=== PATIENT | female | born 1985 | race Caucasian/White ===

== ENCOUNTER 2018-07-04 02:48 | Inpatient (IN) ==
--- OUTSIDE RECORDS SUMMARY | 2018-07-04 02:52 | External Medical Summary | Continuity of Care Document ---
:1985 Author Name Pan Ma, Provider Address Unavailable Unavailable , Care Team Providers Name Role Phone Aliza Arellano [email or web address] JADA ROJAS Unavailable Unavailable Unavailable Unavailable Unavailable Problems Supervision of normal first in third trimester (V2 2.0) (Z34.03) Post-term , 40-42 weeks of gestation (645.10) (O48. 0) Allergies and Adverse Reactions Amoxicillin CAPS (Allergy) Medications TABS Refills: 0 Tums 500 CHEW Refills: 0 Procedures Non-stress test Date: 27-Jun-2018 Immunizations Fluzone Quadrivalent 0.5 ML Intramuscular Suspension P refilled Syringe On: 20-Dec-2017 16:17 Lot #: [id number], SANOFI PASTEUR Tdap (Adacel) On: 11-Apr-2018 16:06 Lot #: [id number], SANOFI PASTEUR Family History Grandfather Family history of Cancer, colon (153.9) (C18.9) Status: Acti ve Mother Family history of malignant neoplasm of breast (V16.3) (Z80. 3) Status: Active Family history of malignant neoplasm of female breast (V16.3 ) Status: Active (Z80.3) Unknown Family Member Family history of malignant neoplasm of Status: Active Comments: Family History breast (V16.3) (Z80.3) Family history of diabetes mellitus (V18.0) Status: Active Comments: Family History (Z83.3) Family history of hypertension (V17.49) Status: Active Comments: Family History (Z82.49) Plan of Treatment Planned Encounters Appointment; Aliza Arellano M.D. Start: 04-Jul-2018 15:20 R equest Planned Observations Planned Goals not documented Results Group B Strep/GALLARDO 06-Jun-2018 0:00 GRP B BETA STREP CULTURE - GALLARDO ORDERED P ROCEDURE : GRP B Beta Strep Culture -GALLARDO; Speciment : V aginal/Rectal Source of Specimen: Vaginal/ Rectal Group B St rep Culture : No Group B Strep isolated Vital Signs 27-Jun-2018 15:18 Systolic 118 mm[Hg] Diastolic 84 mm[Hg] Weight 222 lb Height 64 in BSA Calculated 2.04 m2 BMI Calculated 38.11 kg/m2 20-Jun-2018 13:38 Systolic 128 mm[Hg] Diastolic 82 mm[Hg] Weight 216.2 lb Height 64 in BSA Calculated 2.02 m2 BMI Calculated 37.11 kg/m2 13-Jun-2018 16:12 Systolic 110 mm[Hg] Diastolic 82 mm[Hg] Weight 215.125 lb Height 64 in BSA Calculated 2.02 m2 BMI Calculated 36.93 kg/m2 06-Jun-2018 16:22 Systolic 120 mm[Hg] Diastolic 74 mm[Hg] Weight 217.6 lb Height 64 in BSA Calculated 2.03 m2 BMI Calculated 37.35 kg/m2 Encounters Appointment; Dheeraj Rubio M.D. 27-Jun-2018 15:20 Encounter Diagnosis: Problem not documented Appointment; Israel Castellano M.D. 20-Jun-2018 13:30 Encounter Diagnosis: Problem not documented Appointment; Yemi Beyer M.D. 13-Jun-2018 16:20 Encounter Diagnosis: Problem not documented Appointment; Israel Castellano M.D. 06-Jun-2018 16:20 Encounter Diagnosis: Problem not documented Appointment; Israel Castellano M.D. 24-May-2018 16:30 Encounter Diagnosis: Problem not documented Appointment; Dheeraj Rubio M.D. 09-May-2018 16:30 Encounter Diagnosis: Problem not documented Appointment; Yemi Beyer M.D. 25-Apr-2018 15:50 Encounter Diagnosis: Problem not documented Appointment; Dheeraj Rubio M.D. 11-Apr-2018 16:10 Encounter Diagnosis: Problem not documented Appointment; Kaity Torrez DO 14-Mar-2018 16:00 Encounter Diagnosis: Problem not documented Appointment; [facility], Ultrasound 14-Mar-2018 15:30 Encounter Diagnosis: Problem not documented Appointment; Israel Castellano M.D. 14-Feb-2018 16:20 Encounter Diagnosis: Problem not documented Appointment; [facility], Ultrasound 14-Feb-2018 15:30 Encounter Diagnosis: Problem not documented Appointment; Tessie López M.D. 17-Jan-2018 16:30 Encounter Diagnosis: Problem not documented Appointment; Sandra Larson M.D. 20-Dec-2017 15:50 Encounter Diagnosis: Problem not documented Appointment; OB SC1, Procedure Rm 29-Nov-2017 12:00 Encounter Diagnosis: Problem not documented Appointment; Aliza Arellano M.D. 29-Nov-2017 12:00 Encounter Diagnosis: Problem not documented Appointment; OB SC1, Nursing [employer] [facility] 19-Nov-2017 9:45 Encounter Diagnosis: Problem not documented Appointment; lAiza Arellano M.D. 04-Jan-2017 9:00 Encounter Diagnosis: Problem not documented Appointment; Aliza Arellano M.D. 04-Jul-2018 15:20 Encounter Diagnosis: Problem not documented
[2018-07-04] MEDS ORDERED: OXYTOCIN 30 UNITS/500 ML BAG IV PRN ×2 (03:40→20:32)
[2018-07-04] MEDS ORDERED: LACTATED RINGER'S 1,000 ML IV PRN ×3 (03:40→22:05)
[2018-07-04 04:01] LABS: Hematocrit (blood only) 36.1 % (37-47); Hemoglobin 12.7 g/dL (12.0-16.0); Mean Corpuscular Volume 83.6 fL (80-100); Mean Platelet Volume 11.2 fL (7.4-10.4); Platelet Count 219 K/uL (130-400); RDW Coefficient of Variation 14.3 % (11.5-14.5); RDW Standard Deviation 43.7 fL (36.4-46.3); Red Blood Count 4.32 M/uL (4.2-5.4); White Blood Count 20.74 K/uL (4.8-10.8)
--- NOTE | 2018-07-04 04:16 | History & Physical Report ---
Date of Service July 04, 2018 Assessment & Plan (1) Supervision of normal intrauterine in primigravida: - pt had been LTC in office last week - early active labor - tracing Cat I - will admit and ambulate - anticipate History of Present Illness Chief Complaint: labor check Primary Care Provider: Hnana Pinto DO The patient is a 33-year-old 1 para 0 with an EDC of 6.8 by dates and first trimester ultrasound, at 40 weeks gestational age, who presents to labor and delivery for labor check. Patient states the contractions began 6 to 7 hours ago and increased in intensity. She denies rupture of membranes or vaginal bleeding. The patient has had a benign course. Her blood type is A+, antibody negative, rubella immune, hepatitis B negative, she had a negative cell free DNA screening, she had a normal 1 hour Glucola x2, and a negative third trimester beta strep culture. Allergies Allergy/AdvReac Type Severity Reaction Status Date / Time amoxicillin Allergy Rash Verified 07/04/18 03:11 Home Medications Home Medications Medication Instructions Recorded Confirmed Type vit-iron fum-folic ac 1 tab PO DAILY 07/04/18 07/04/18 History [ Vitamin] Patient History Social History Preferred Language: Setswana Communication Ability: Effective Manager Unix Required: No Beliefs That Will Affect Care: None marital status: Current Living Situation: Spouse Other Information That Helps Us Care for You: No Feels Safe at Home: Yes Safety Concerns: Feels Safe At This Time Smoking Status: Never smoker Hx Alcohol Use: No Hx Substance Use: No Physical Exam Constitutional: WD/WN, vitals as above Respiratory: Auscultation: lungs clear to auscultation bilaterally Cardiovascular: RRR, no murmur, no edema Extremities: no calf tenderness Gastrointestinal (Abdomen): gravid, vtx, (+) FHT's, EFW 7 1/2 lbs Genitourinary: Cervix #/80/-2 Results & Data Vital Signs (Past 12 Hours) Vital Signs Temp Pulse Resp BP 07/04/18 03:05 98.1 F 90 20 132/73
[2018-07-04 05:06] LABS: Mean Corpuscular Hgb Conc 35.2 g/dL (32-36)
--- NOTE | 2018-07-04 20:33 | Obstetrical Progress Note ---
Date of Service Cx still 5cm, -1 Recommend Pitocin 7-8 lbs Wishes epidural first July 04, 2018 Results & Data Vital Signs (Past 12 Hours) Vital Signs Temp Pulse Resp BP 07/04/18 19:30 98.1 F 96 H 18 126/68 07/04/18 19:02 96 H 126/68 07/04/18 16:46 87 142/80 H 07/04/18 16:42 98.4 F 20 07/04/18 14:27 99.1 F 20 07/04/18 11:24 98.4 F 85 20 133/81
[2018-07-04] MEDS ORDERED: ePHEDrine sulfate 50 MG/ML AMP ONE (20:51)
[2018-07-04] MEDS ORDERED: BUPIVACAINE 0.25% 30 ML VIAL ONE (20:51)
[2018-07-04] MEDS ORDERED: fentaNYL citrate 100 MCG/2 ML VIAL ONE (20:51)
[2018-07-04] MEDS ORDERED: fentaNYL 2MCG/ML ROPIV 1.25MG/ML 100 ML BAG EPI ONE (20:51)
--- NOTE | 2018-07-04 21:20 | Anesthesiology Consultation ---
Date of Service July 04, 2018 Assessment & Plan (1) Encounter for pre-operative examination: Chart Review Chart Review: Patient NOT seen in Pre Admission Testing and Acceptable Risk for Labor Epidural Consults Requested none ASA ASA2 Proposed Anesthesia Anesthesia Type: Labor Epidural Risk / Benefits Reviewed With: PT / POA / Parent / Guardian, Accepts Plan and Informed Consent Obtained History Height/Weight Height: 5 ft 4 in Weight: 100.698 kg Allergies Allergy/AdvReac Type Severity Reaction Status Date / Time amoxicillin Allergy Rash Verified 07/04/18 03:11 Medications Home Medications Medication Instructions Recorded Confirmed Last Taken vit-iron fum-folic ac 1 tab PO DAILY 07/04/18 07/04/18 07/03/18 08:00 [ Vitamin] Active Medications Generic Name Dose Route Start Last Admin Trade Name Freq PRN Reason Stop Dose Admin Lactated Ringer's 1,000 mls @ 999 mls/hr 07/04/18 03:40 07/04/18 21:20 Lr IV 08/03/18 03:39 125 mls/hr .Q1H1M PRN Infusion Pre-Anesthesia NPO Date Last Intake of Fluids: 07/04/18 Time Last Intake of Fluids: 22:01 Date Last Intake of Solids: 07/03/18 Time Last Intake of Solids: 16:00 Exercise / Class Metabolic Activity II 4-5 Yardwork/Stairs/Walk up hill Past Anesthesia History No Family Hx of Anesthesia Complications History of PONV No Hx of PONV (No prior anesthetic history) and No Hx of Motion Sickness Social History Smoking Status: Never smoker Hx Alcohol Use: No Hx Substance Use: No substance use type: does not use Review of Systems Patient denies active symptoms of GERD. Patient denies history of abnormal bleeding or bleeding disorder. Patient denie s active use of anticoagulants other than low dose aspirin. Patient denies numbness, tingling or weakness in lower extremities. Physical Exam Vital Signs Last Vital Signs Temp 36.7 C 07/04/18 19:30 Pulse 96 H 07/04/18 19:30 Resp 18 07/04/18 19:30 BP 126/68 07/04/18 19:30 Constitutional + obese (Gravid uterus) ENMT Mouth: no TMJ abnormality and oral opening not small Thyromental Distance: > or= 3.5 Finger Breadths Mallampati Class: II Neck normal visual inspection; neck extension not limited Respiratory normal respiratory effort, lungs clear to auscultation normal respiratory effort Auscultation: lungs clear to auscultation bilaterally Cardiovascular Rate/Rhythm: regular rate and regular rhythm Heart Sounds: no murmur Neurologic moves all extremities Motor/Sensory: no sensory deficit Psychiatric Orientation: alert and oriented x 3 Testing Laboratory Results 07/04/18 03:48
[2018-07-04] MEDS ORDERED: NALOXONE HCL 0.4 MG/1 ML VIAL/CARP IV PRN (22:05)
[2018-07-04] MEDS ORDERED: fentaNYL 2MCG/ML ROPIV 1.25MG/ML 100 ML BAG EPI PRN (22:05)
[2018-07-04] MEDS ORDERED: NALBUPHINE HCL INJ 10 MG/ML AMP IV PRN (22:05)
[2018-07-04] MEDS ORDERED: DiphenhydrAMINE HCL 50 MG/ML VIAL IV PRN (22:05)
[2018-07-04] MEDS ORDERED: ONDANSETRON INJ 2 MG/ML 2 ML VIAL IV PRN (22:05)
[2018-07-04] MEDS ORDERED: ePHEDrine sulfate 50 MG/ML AMP IV PRN (22:05)
[2018-07-04] MEDS ORDERED: NALOXONE HCL 1 MG in SODIUM CHLORIDE 0.9% 1000ML 1,000 ML IV PRN (22:05)
[2018-07-04] MEDS: LACTATED RINGER'S 1,000 ML IV SCH (23:37)
[2018-07-05] MEDS: LACTATED RINGER'S 1,000 ML IV SCH (06:10)
--- NOTE | 2018-07-05 09:21 | Procedure Note ---
Vaginal Delivery Summary Date of Service July 05, 2018 I arrived at L&D to begin my shift while this patient was pushing and my partner was scrubbed into another delivery. I therefore quickly introduced myself to Tonya and was given a verbal overview of her medical information by YOLANDA Siddiqi while I gowned and gloved for delivery. FHT were appropriate for second stage and pushing was effective (patient had been trying to hold off, with some difficulty). She was given the OK to push and in the next contration brought the head to . She then was able to deliver the head in RHODA position and two tight nuchal loops were reduced, while very thick meconium extruded from the vaginal opening around the infant. The next push delivered the shoulders and body without undue difficulty. The was placed on the maternal abdomen, suction bulb provided to RN, and cord doubly clamped and cut. The was vigorous and moving all extremities. A second degree laceration was repaired using vicryl suture with a crown stitch to rebuild the perineal body. The placenta then delivered S/I/3VC and will be sent for exam. The fundus was firm and lochia WNL at completion of delivery.
[2018-07-05] MEDS ORDERED: OXYCODONE/ACETAMINOPHEN 5mg/325mg TAB PO PRN (09:29)
[2018-07-05] MEDS ORDERED: SUPERCREAM 0.870% 15 GM JAR EXT PRN (09:29)
[2018-07-05] MEDS ORDERED: DIPHTHERIA/TETANUS/PERTUSSIS 0.5 ML SYR/VIAL IM ONE (09:29)
[2018-07-05] MEDS ORDERED: BENZOCAINE 20% AER SPR 82.5 GM CAN EXT PRN (09:29)
[2018-07-05] MEDS ORDERED: ACETAMINOPHEN 325 MG TAB PO PRN (09:29)
[2018-07-05] MEDS ORDERED: HYDROCORTISONE ACETATE 25 MG SUPP PR PRN (09:29)
--- NOTE | 2018-07-05 09:38 | Anesthesia Procedure Note ---
Date of Service July 05, 2018 Anesthesia Post Epidural Note Vital Signs Vital Signs: Temp Pulse Resp BP Pulse Ox 37.2 C 82 18 110/56 L 100 07/05/18 05:10 07/05/18 09:24 07/05/18 05:10 07/05/18 09:24 07/05/18 08:37 Pain Intensity Bilateral Lower Abdomen: Pain Intensity: 5 Notes Mental Status: alert / awake / arousable Patient Amnestic to Procedure: No Nausea / Vomiting: adequately controlled Pain: adequately controlled Airway Patency, RR, SpO2: stable & adequate BP & HR: stable & adequate Hydration State: stable & adequate Anesthetic Complications: no major complications apparent Epidural: Removed without complications and With tip intact Notes: Doing well, no complaints. VSS
[2018-07-05] MEDS: IBUPROFEN 600 MG TAB PO PRN ×2 (12:18→20:14)
[2018-07-05] MEDS: DOCUSATE SODIUM 100 MG CAP PO SCH (20:14)
[2018-07-06 07:12] LABS: Hematocrit (blood only) 32.9 % (37-47); Hemoglobin 10.9 g/dL (12.0-16.0)
--- NOTE | 2018-07-06 07:20 | Obstetrical Progress Note ---
Date of Service July 06, 2018 Assessment & Plan (1) Status post vaginal delivery: Patient is a 33 year old PPD 1 s/p -Vital signs WNL bp 105/71 T36.6, -Hemoglobin is 10.4 down from 12.7 on admission. no si/sx of anemia. -Pt is doing clinically well -Continue to encourage ambulation as tolerated, monitor and control pain with motrin prn, Continue diet as tolerated. -Continue to support and encourage breast feeding -pt reports concerns with breast feeding, consider meeting with technology applications consultant. -Routine care Supervising Physician Co-Signing Physician Notes I have reviewed the resident's note and examined the patient myself, and agree with the note above. Subjective Patient sitting up in bed with dad holding baby in the chair across the room. No acute events overnight. Patient is tolerating her diet, ambulating, passing gas and voiding, still no bm. Reports moderate lochia. Denies H/A, chest pain, palpitations and uti syx. Answered all questions, no concerns at present, pain is well controlled Physical Exam Physical Exam: Constitutional: WD/WN, vitals as above no acute distress Eyes: normal visual dean by confrontation Neck: normal visual inspection Respiratory: normal respiratory effort, lungs clear to auscultation Cardiovascular: RRR, no murmur, no edema Heart Sounds: normal S1 and normal S2 Extremities: no calf tenderness Gastrointestinal (Abdomen): Uterus firm and below the umbilicus Results & Data Vital Signs (Past 12 Hours) Vital Signs Temp Pulse Resp BP 07/06/18 04:20 36.6 C 76 18 105/71 07/05/18 23:30 36.9 C 83 18 106/72 07/05/18 20:16 37.1 C 93 H 18 116/79 Laboratory Results 07/06/18 Range/Units 07:01 Hgb 10.9 L (12.0-16.0) g/dL Hct 32.9 L (37-47) % Medications Administered Current Inpatient Medications Acetaminophen (Tylenol) 650 mg PO Q6H PRN PRN Reason: Pain/GUERIN/Fever Stop: 08/04/18 09:28 Benzocaine (Dermoplast Pain Relieving [place]) 1 appln EXT PRN PRN PRN Reason: Perineal Discomfort Stop: 08/04/18 09:28 Cocaine HCl (Supercream 0.870%) 1 gm EXT BID PRN PRN Reason: Hemorrhoidal Inflammation Stop: 07/19/18 09:28 Docusate Sodium (Colace) 100 mg PO BID [facility] Stop: 08/04/18 20:59 Last Admin: 07/05/18 20:14 Dose: 100 mg Documented by: Hydrocortisone (Anusol Hc) 25 mg WA BID PRN PRN Reason: Hemorrhoidal Inflammation Stop: 08/04/18 09:28 Lactated Ringer's (Lr) 1,000 mls @ 999 mls/hr IV .Q1H1M PRN PRN Reason: Pre-Anesthesia Stop: 08/03/18 03:39 Last Infusion: 07/04/18 23:36 Dose: Infused Documented by: Oxytocin (Pitocin) 30 units in 500 mls @ 333.333 mls/hr IV .Q1H30M PRN; Protocol PRN Reason: Bleeding Control Stop: 08/03/18 03:39 Ibuprofen (Motrin) 600 mg PO Q4H PRN PRN Reason: Pain/GUERIN/Cramping/Fever Stop: 08/04/18 09:28 Last Admin: 07/05/18 20:14 Dose: 600 mg Documented by: Oxycodone/Acetaminophen (Percocet 5mg/325mg) 1 tab PO Q4H PRN PRN Reason: Pain not relieved by... Stop: 07/19/18 09:28 Prenat Multivit/[place]/Iron/Folic Ac ( Vitamin) 1 tab PO QAM [facility] Stop: 08/05/18 08:59 Resident Activity Tracking Resident Involvement: Resident Care Provided Care Provided: Adult Hospital Medicine
--- NOTE | 2018-07-06 08:14 | Obstetrical Progress Note ---
Date of Service July 06, 2018 Subjective Patient points out a sore <1inch lump in L calf muscle which she did not think to mention to resident or MD on rounds this morning. RN tells me about this and I promptly go to see the patient. She has some varicosities, but in an area of normal-appearing skin, she points out a firm tender lump. This is within the medial head of the gastrocnemius, and the patient notes increased pain with flexion of the left foot. I explained my concern for possible DVT, and that a lso in the differential would be a superficial phlebitis, muscle cramp, etc. She is asked not to massage or excessively flex this area until a stat US of LE can be completed. Patient agreeable. At this time she does not have CP, SOB or desaturation noted. There is no increased edema in the left foot. There is no erythema or warmth over the affected area. Results & Data Vital Signs (Past 12 Hours) Vital Signs Temp Pulse Resp BP 07/06/18 04:20 36.6 C 76 18 105/71 07/05/18 23:30 36.9 C 83 18 106/72 07/05/18 20:16 37.1 C 93 H 18 116/79
[2018-07-06] MEDS: PRENATAL VITAMIN 1 TAB PO SCH (08:47)
[2018-07-06] MEDS: DOCUSATE SODIUM 100 MG CAP PO SCH ×2 (08:47→21:04)
--- NOTE | 2018-07-06 09:38 | Ultrasound Report ---
US venous doppler LE LT CLINICAL HISTORY: Suspected DVT PAIN. EDEMA. COMPARISON STUDY: No previous studies for comparison. FINDINGS: Real-time and color flow Doppler imaging were performed. Flow was seen within the femoral, popliteal and calf veins with no intraluminal thrombus demonstrated. Superficial varicosities of the mid calf demonstrate a 4 cm linear superficial thrombus. This is not in close proximity to a deep chance ous structure. IMPRESSION: 1. No evidence for deep venous thrombosis. 2. Superficial thrombophlebitis measuring 4 cm in greatest linear dimension involving a superficial v aricosity The above report was generated using voice recognition software. It may contain grammatical, syntax or spelling errors. Electronically signed by: David Saldaña M.D. 07/06/2018 9:37 AM
--- NOTE | 2018-07-06 11:06 | Consultation ---
Date of Consultation July 06, 2018 Assessment & Plan (1) Status post vaginal delivery: - Per primary team (2) Superficial thrombophlebitis during puerperium, : - The patient is high risk considering being 2d , as well as family history of unprovoked DVTs. She may have a family hx of blood dyscrasia or Factor V Leiden which is unknown at this time. Consider outpatient workup. - Would start lovenox 40 mg subq daily for 6 weeks - US reviewed as above - measures 4 cm in the left calf, no deep venous structure involvement. - Recommend serial ultrasounds to monitor the status of this clot, the next being within 3days, and then another 2-3 times to ensure the clot resolves. Would also recommend Right leg U/S for caution - Warm compresses and nsaids ok - Lovenox safe with as the patient plans to do this Thank you for involving medicine in the care of Mrs. Griffith, please do not hesitate to call with questions or concerns. Our team will follow along. Supervising Physician Co-Signing Physician Notes Attending Consult Note & Attestation - Pt seen/examined, chart reviewed, care plan d/w HANG Mon. I agree w/ the hollins components of her consultation documentation. 33yo female - 2 days post- from the of a term baby boy - who was diagnosed earlier today with superficial thrombophlebitis of the left leg. Patient noted a firm lump of the distal left leg (medial aspect of calf) this AM, OB ordered doppler, and this confirmed the presence of superficial thrombophlebitis of a calf muscle superficial vein. NO DVT was seen in the left leg. During my visit she complained of minimal soreness to this affected region. The patient plans to breastfeed her son. Denies ANY chest pain, dyspnea, cough, or other chest symptoms. No family h/o PE but there is a family h/o DVT and superficial thrombophlebitis. Patient is agreeable to lovenox treatment. PMH, PSH, allergies, meds, sochx, famhx, ros - reviewed VSS, afebrile gen - obese, NAD heart - RRR, s1, s2, no murmur lungs - CTA b/l ext - left calf mildly larger than right calf; palpable thrombus in the left leg on medial aspect of calf, about 2-3cm in size; no significant warmth, redness, or swelling; scattered varicose veins both legs A/P: 2 days post- from of term male. LLE superficial thrombophlebitis. After much discussion the patient is willing to treat/prophylax with lovenox 40mg SC once daily. Given her strong family history of DVT/phlebitis we advised this treatment option (rather than observation with serial doppler studies). Since we will be treating with lovenox would only obtain another doppler study if the LLE worsens or there is obvious propagation of the current clot. Otherwise serial dopplers would not alter our treatment course which is 6 weeks of the lovenox. On 07/07 we will call her pharmacy to check the denise of lovenox. to perform injections -- staff to teach her spouse. Of note - lovenox IS safe to use in mothers. I will follow the patient up again on 07/07. Toño Lara MD History of Present Illness Requesting Physician: Dr. Akbar Reason for Consultation: Superficial Thrombophlebitis Left calf Attending Physician: Yemi Beyer Jr, MD, FACOG History of Present Illness This is a 33 yo F without significant PMHx who is admitted to the L&D floor, and now 2 days . The patient reports soreness developed over the L calf after delivery. Upon ultrasound of the LLE, a 4 cm superficial clot was identified. The area is palpable to the patient without redness overlying the area. Family Hx: Pt notes significant family history with mother having an unprovoked DVT in the past where she was placed on coumadin. Her mother also had breast cancer however had issues with clots and varicose veins prior to that diagnosis. Pt's father also had hx of varicose veins with superficial thrombophlebitis and DVT with hx of being on coumadin in the past. Neither parent on lifelong coumadin She denies any known blood dyscrasias. Allergies Allergy/AdvReac Type Severity Reaction Status Date / Time amoxicillin Allergy Rash Verified 07/04/18 03:11 Home Medications Home Medications Medication Instructions Recorded Confirmed Type vit-iron fum-folic ac 1 tab PO DAILY 07/04/18 07/04/18 History [ Vitamin] Patient History Medical History Superficial thrombophlebitis during puerperium, Surgical History Status post vaginal delivery Social History Preferred Language: Maltese Communication Ability: Effective Tile Erector Required: No Beliefs That Will Affect Care: None marital status: Current Living Situation: Spouse Other Information That Helps Us Care for You: No Feels Safe at Home: Yes Safety Concerns: Feels Safe At This Time Smoking Status: Never smoker Hx Alcohol Use: No Hx Substance Use: No Review of Systems Review of Systems: Constitutional: No fever, sweats or chills Eyes: No diplopia, no worsening or blurred vision ENT: normal hearing, no trouble swallowing Respiratory: No cough, sputum, dyspnea at rest or on exertion Cardiovascular: No chest pain, tightness or palpitations Abdomen: No pain, nausea, vomiting, diarrhea or constipation Musculoskeletal: No joint pain, calf pain, swelling Neurologic: No weakness, numbness/tingling, or balance problems Psychiatric: No anxiety or depression Skin: No rash or itch Physical Exam Physical Exam: General: awake, alert, no apparent distress Head: Normocephalic, atraumatic ENT: PERRL, EOMI, no pharyngeal exudate, mucous membranes moist Chest: Clear to auscultation, on room air, no adventitious breath sounds Cardiac: Regular rate and rhythm, no murmur, no JVD, normal peripheral pulses, good capillary refill Abdominal: NABS x 4 quadrants, soft, nontender to palpation, no rebound, guarding or tenderness Extremities: No peripheral edema or erythema, + Left calf tenderness and palpable cord overlying the posterior medial aspect. Right calf nontender to palpation. Psych: Normal mood and affect Neuro: AAO x 3, strength intact bilaterally and related 5/5, no motor deficits, speech is clear, no peripheral sensory deficits Results & Data Vital Signs (Past 12 Hours) Vital Signs Temp Pulse Resp BP 07/06/18 08:00 36.5 C 87 20 122/83 07/06/18 04:20 36.6 C 76 18 105/71 07/05/18 23:30 36.9 C 83 18 106/72 Diagnostic Findings US venous doppler LE LT CLINICAL HISTORY: Suspected DVT PAIN. EDEMA. COMPARISON STUDY: No previous studies for comparison. FINDINGS: Real-time and color flow Doppler imaging were performed. Flow was seen within the femoral, popliteal and calf veins with no intraluminal thrombus demonstrated. Superficial varicosities of the mid calf demonstrate a 4 cm linear superficial thrombus. This is not in close proximity to a deep venous structure. IMPRESSION: 1. No evidence for deep venous thrombosis. 2. Superficial thrombophlebitis measuring 4 cm in greatest linear dimension involving a superficial varicosity
[2018-07-06] MEDS ORDERED: LOVENOX TEACHING KIT PRN (11:31)
[2018-07-06 14:28] LABS: Partial Thromboplastin Time 26.9 Seconds (21.0-31.0); Prothrombin Time 9.8 Seconds (9.0-12.0)
[2018-07-06] MEDS: ENOXAPARIN INJ 40 MG/0.4 ML SYR SQ SCH (15:58)
[2018-07-06] MEDS: IBUPROFEN 600 MG TAB PO PRN (21:07)
[2018-07-07] MEDS: IBUPROFEN 600 MG TAB PO PRN (04:02)
--- NOTE | 2018-07-07 07:23 | Obstetrical Progress Note ---
Date of Service July 07, 2018 Assessment & Plan (1) Status post vaginal delivery: #S/P Vaginal Delivery Patient is a 33 year old PPD 1 s/p -Vital signs WNL bp 105/71 T36.6, -Hemoglobin is 10.4 down from 12.7 on admission. no si/sx of anemia. -Pt is doing clinically well -Continue to encourage ambulation as tolerated, Monitor and control pain with motrin prn, Continue diet as tolerated. -Continue to support and encourage breast feeding -Counseled patient on discharge instructions including Vaginal bleeding, fevers, followup, lifting restrictions, breast feeding, vitamins, and nothing in the vagina for 6 weeks. Pt was agreeable -Plan for d/c today #Superficial Venous Thrombosis Pt reported hard lump in her calf approx 1 inch in diameter. Obtained doppler U/S demonstrating superficial venous clot. pt has an FHx of clots. -Consulted Hospitalists service, following recs -Lovenox 40mg sq for 6 weeks -Only obtain repeat u/s if pain in LLE worsens -Lovenox safe to use while -Pt will administer injections Subjective Patient sitting up in bed this morning breast feeding her baby with dad at the bedside. patient reports sleeping well overnight. No adverse events from lovenox therapy, pt reported learning how to adminster yesterday, and will be demonstrating competency today. I counseled the patient on her increased bleeding risk while on lovenox, specifically if she sustains an injury that does not stop bleeding for 15 minutes or she is losing a large volume of blood to contact her pcp. Still endorses some leg pain, appears to be msk related on exa m. Patient is tolerating her diet, ambulating, passing gas and voiding, still no bm. Reports moderate lochia. Denies H/A, chest pain, palpitations and uti syx. Answered all questions, no concerns at present, pain is well controlled Physical Exam Physical Exam: Differed 2/2 to , see attending note for Physical Exam. Results & Data Vital Signs (Past 12 Hours) Vital Signs Temp Pulse Pulse Resp BP Pulse Ox 07/07/18 00:35 36.6 C 73 20 119/72 98 07/06/18 20:15 36.9 C 92 H 20 133/82 98 Laboratory Results 07/06/18 Range/Units 14:05 PT 9.8 (9.0-12.0) Seconds INR 1.0 (0.9-1.1) APTT 26.9 (21.0-31.0) Seconds PTT Ratio 1.0 Medications Administered Current Inpatient Medications Acetaminophen (Tylenol) 650 mg PO Q6H PRN PRN Reason: Pain/GUERIN/Fever Stop: 08/04/18 09:28 Benzocaine (Dermoplast Pain Relieving [place]) 1 appln EXT PRN PRN PRN Reason: Perineal Discomfort Stop: 08/04/18 09:28 Cocaine HCl (Supercream 0.870%) 1 gm EXT BID PRN PRN Reason: Hemorrhoidal Inflammation Stop: 07/19/18 09:28 Docusate Sodium (Colace) 100 mg PO BID [facility] Stop: 08/04/18 20:59 Last Admin: 07/06/18 21:04 Dose: 100 mg Documented by: Enoxaparin Sodium (Lovenox) 40 mg SQ QAM [facility] Stop: 08/05/18 15:59 Last Admin: 07/06/18 15:58 Dose: 40 mg Documented by: Hydrocortisone (Anusol Hc) 25 mg [place] BID PRN PRN Reason: Hemorrhoidal Inflammation Stop: 08/04/18 09:28 Lactated Ringer's (Lr) 1,000 mls @ 999 mls/hr IV .Q1H1M PRN PRN Reason: Pre-Anesthesia Stop: 08/03/18 03:39 Last Infusion: 07/04/18 23:36 Dose: Infused Documented by: Oxytocin (Pitocin) 30 units in 500 mls @ 333.333 mls/hr IV .Q1H30M PRN; Protocol PRN Reason: Bleeding Control Stop: 08/03/18 03:39 Ibuprofen (Motrin) 600 mg PO Q4H PRN PRN Reason: Pain/GUERIN/Cramping/Fever Stop: 08/04/18 09:28 Last Admin: 07/07/18 04:02 Dose: 600 mg Documented by: Miscellaneous (Lovenox Teaching Kit) 1 ea N/A PRN PRN PRN Reason: Prophylaxis Stop: 08/05/18 11:30 Oxycodone/Acetaminophen (Percocet 5mg/325mg) 1 tab PO Q4H PRN PRN Reason: Pain not relieved by... Stop: 07/19/18 09:28 Prenat Multivit/Clements/Iron/Folic Ac ( Vitamin) 1 tab PO QAM [facility] Stop: 08/05/18 08:59 Last Admin: 07/06/18 08:47 Dose: 1 tab Documented by: Resident Activity Tracking Resident Involvement: Resident Care Provided Care Provided: Adult Hospital Medicine
[2018-07-07] MEDS: DOCUSATE SODIUM 100 MG CAP PO SCH (09:09)
[2018-07-07] MEDS: PRENATAL VITAMIN 1 TAB PO SCH (09:10)
[2018-07-07] MEDS: ENOXAPARIN INJ 40 MG/0.4 ML SYR SQ SCH (09:13)
--- NOTE | 2018-07-07 11:13 | Hospitalist Progress Note ---
Date of Service July 07, 2018 Assessment & Plan (1) Superficial thrombophlebitis during puerperium, : LEFT leg. Below the knee calf vessel. I don't see any new areas of concern on exam today. Lovenox 40mg daily x 6 weeks. No need for f/u / serial dopplers unless there is concern of propagation of the area of phlebitis, symptoms/signs concerning for new DVT, etc. Could consider outpatient hematology referral for testing (factor V Leiden, etc) due to strong family history of DVT. Warm packs, NSAIDs prn, elevation for swelling/pain control. f/u PCP in 1 week. Cost is $30/month; script called in this am by our nurse navigator. to give injections and feels comfortable with such. NO contraindication to . OK for d/c from medical standpoint. Present on Admission?: No Subjective feeling good mild myalgias of the left calf area and feels "stiff" in the left thigh but able to ambulate easily the palpable superficial phlebitis is similar to yesterday denies edema focally in the left thigh denies DIAZ son is being d/c to home today as well Review of Systems Constitutional: no fever Respiratory: no dyspnea and no dyspnea on exertion Cardiovascular: no chest pain Physical Exam Constitutional: well developed, well nourished and + obese; no acute distress and not ill appearing Respiratory: normal respiratory effort, lungs clear to auscultation Cardiovascular: Rate/Rhythm: regular rate and regular rhythm Heart Sounds: normal S1 and normal S2; no murmur Vessels: posterior tibial pulses present and dorsalis pedis pulses present; no JVD Extremities: + pedal edema (trace to 1+ edema b/l) Skin: palpable area of phlebitis with minimal erythema over medial aspect of left calf; no tenderness; palpable area is 2-3cm - no change from yesterday symmetric thighs with no focal edema, cords, etc of either thigh Results & Data Vital Signs (Past 12 Hours) Vital Signs Temp Pulse Resp BP Pulse Ox 07/07/18 07:00 36.7 C 79 20 120/74 100 07/07/18 00:35 36.6 C 73 20 119/72 98
== END 2018-07-07 16:15 | disposition home or self-care (01) | DRG 806 ==
LOC: OPB 02:48 → 4S1 02:51 → 4S2 07-05 11:47

== ENCOUNTER 2022-02-11 11:17 | Inpatient (IN) ==
[2022-02-11] MEDS ORDERED: OXYTOCIN 30 UNITS/500 ML BAG IV PRN ×3 (11:30→19:45)
[2022-02-11] MEDS ORDERED: LIDOCAINE 1% LOCAL 20 ML VIAL INFIL PRN (11:30)
--- NOTE | 2022-02-11 11:30 | History & Physical Report ---
Date of Service February 11, 2022 Assessment & Plan (1) Elective induction of labor planned: (2) Term : (3) History of DVT (deep vein thrombosis): Plan Plan - Patient admitted to labor and delivery for initiation of medical induction of labor - TOYIN pending Dr. Pulliam's evaluation - Plan Horta bulb placement and pitocin augmentation - Once contractions are progressing, will consider ROM - Will anticipate epidural as contractions arise - Labs pending, COVID testing ordered - Plan for Lovenox 40 SQ daily following delivery Admission and Anticipated Discharge Date Admission Date: February 11, 2022 History of Present Illness Chief Complaint: Induction of Labor Primary Care Provider: NO PCP Tonya is a 36 F currently EGA 39w4d with CEDRIC 02/13/22 based on LMP of 05/09/21 who is presenting to L&D for induction. Complications: AMA (recent NST reactive 02/10) and superficial DVT of prior (anticoagulated) - Patient's last dose of Heparin was evening of 02/10, planned transition to Lovenox following delivery Reason for Induction/: Elective Movement: Yes Contractions: Occasional, inconsistent Fluid Loss/ROM: No Bloody show/discharge: No External FHT and uterine monitor: Category 1 tracing , good FHT variability, baseline 135, no decelerations Last OB appointment: 02/10 w/ Dr. Pulliam, regular care Labs: Blood Type: A+ Antibody Screen: Negative Hg/Hct (01/21): 11.8/35 Rubella: Immune RPR: Non-reactive Gonorrhea: Negative Chlamydia: Negative HIV: Negative HbSAg: Negative GBS: Negative Cff-DNA: Low risk (prior ) ROS: - Denies fever, chills, sweats - Denies dyspnea or pleuritic pain - Denies chest pain, palpitations, or pressure - Denies breast pain - Denies dysuria - Denies headache or visual changes Allergies Allergy/AdvReac Type Severity Reaction Status Date / Time amoxicillin Allergy Rash Verified 02/10/22 15:29 Home Medications Medication Instructions Recorded Confirmed Type prenat.vits,mindy,oqr-qnwx-tecrh 1 tab PO DAILY 07/09/21 02/11/22 History heparin (bovine) 5,000 unit/mL 5,000 unit 02/11/22 History injection solution Patient History Medical History (Updated 02/11/22 @ 11:48 by Yuliana Villeda, DO) Breakthrough bleeding on OCPs Encounter for annual routine gynecological examination History of varicella vaccination Post-term , 40-42 weeks of gestation Superficial thrombophlebitis during puerperium, Supervision of normal first in third trimester Family History Grandfather (Maternal) Colorectal cancer Family/Other Diabetes Hypertension Mother Breast cancer, Onset Age: 45 Social History (Updated 02/11/22 @ 12:37 by Krystina Cyr RN) Smoking Status: Never smoker Hx Alcohol Use: No Hx Substance Use: No Preferred Language: Iraqi Communication Ability: Effective Visual Impairment: No Limitations Hearing Ability: Normal Hospitality Job Titles Required: No Beliefs That Will Affect Care: None marital status: marital status details: Ottoniel Hernandez (40) [phone] Current Living Situation: Spouse and Family Current Living Situation Comment: lives with spouse and son, no pets. current occupational status: employed current occupation: home school teacher. Other Information That Helps Us Care for You: No Feels Safe at Home: Yes Safety Concerns: Feels Safe At This Time Assistive Devices: Glasses Review of Systems All systems reviewed & are unremarkable except as noted in HPI & below Physical Exam Physical Exam: General: Alert, oriented. No acute distress. Cardiac: Regular rate and rhythm, no murmurs/rubs/gallops. Respiratory: Clear to auscultation bilaterally a/p, no wheezes/rales/rhonchi. No increased work of breathing. Symmetrical chest rise. No respiratory distress. Abdomen: Gravid; FHT present, vertex position via Richard maneuver/buttocks palpable in RUQ Pelvic: DEF pending Dr. Pulliam Lower Extremities: No lower extremity edema or swelling. No deep calf pain. Dillon's negative bilaterally. Genitourinary: OB Exam Abdomen: + vertex, + estimated weight (7-8 pounds) and + irregular contractions Manual OB Exam: + cervical dilation 3 cm, + cervical effacement 80% and + station high (-3) OB Exam Monitor Tracing: + external FHT monitor used, + external uterine monitor used, + category I and + normal FHT variability Supervising Physician Co-Signing Physician Notes Resident Physician Supervision Note: I interviewed and examined the patient. Discussed with Dr. Villeda and agree with findings and plan as documented in the note. Any exceptions or clarifications are listed here: cervical exam today shows sufficient dilation and cervical balloon not needed. will continue with pitocin aumentation of her contractions. Will also check PT/PTT because of heparin prophylaxis. last dose of heparin was 1915 last evening. Documented By: Natalee Akbar MD, FACOG Resident Activity Tracking Resident Involvement: Resident Care Provided Care Provided: OB Delivery
[2022-02-11 11:52] LABS: Hematocrit (blood only) 39.2 % (34.1-44.9); Hemoglobin 13.2 g/dl (12.0-16.0); Mean Corpuscular Hemoglobin 28.6 pg (25.0-34.0); Mean Corpuscular Hgb Conc 33.7 g/dL (32.0-36.0); Mean Platelet Volume 11.4 fL (9.4-12.3); Platelet Count 272 K/uL (130-400); RDW Coefficient of Variation 15.4 % (11.5-14.5); RDW Standard Deviation 47.7 fL (36.4-46.3); Red Blood Count 4.61 M/uL (3.93-5.22); White Blood Count 13.41 K/ul (4.8-10.8)
[2022-02-11] MEDS ORDERED: SODIUM CHLORIDE 0.9% 250 ML IV PRN (12:42)
[2022-02-11] MEDS: LACTATED RINGER'S 1,000 ML IV PRN ×3 (12:52→18:37)
[2022-02-11 13:48] LABS: INR 0.9 (0.9-1.1); Partial Thromboplastin Ratio 0.9; Partial Thromboplastin Time 25.1 Seconds (21.0-31.0); Prothrombin Time 9.8 Seconds (9.0-12.0)
[2022-02-11] MEDS ORDERED: ePHEDrine sulfate 50 MG/ML AMP ONE (15:04)
[2022-02-11] MEDS ORDERED: LIDOCAINE 2%/EPINEPHRINE 1:200,000 20 ML SDV ONE (15:05)
[2022-02-11] MEDS ORDERED: fentaNYL citrate 100 MCG/2 ML VIAL ONE (15:05)
[2022-02-11] MEDS ORDERED: SODIUM CHLORIDE 0.9% INJ 10 ML VIAL ONE (15:05)
[2022-02-11] MEDS ORDERED: BUPIVACAINE 0.25% 30 ML VIAL ONE (15:05)
[2022-02-11] MEDS ORDERED: fentaNYL 2MCG/ML ROPIVACAINE 1.25MG/ML 100 ML BAG EPI ONE (15:06)
[2022-02-11] MEDS ORDERED: fentaNYL 2MCG/ML ROPIVACAINE 1.25MG/ML 100 ML BAG EPI PRN (15:35)
[2022-02-11] MEDS ORDERED: diphenhydrAMINE 50 MG/ML VIAL IV PRN (15:35)
[2022-02-11] MEDS ORDERED: NALOXONE HCL 1 MG in SODIUM CHLORIDE 0.9% 1000ML 1,000 ML IV PRN (15:35)
[2022-02-11] MEDS ORDERED: NALBUPHINE HCL INJ 10 MG/ML AMP IV PRN (15:35)
[2022-02-11] MEDS ORDERED: ePHEDrine sulfate 50 MG/ML AMP IV PRN (15:35)
[2022-02-11] MEDS ORDERED: NALOXONE HCL 0.4 MG/1 ML VIAL/CARP IV PRN (15:35)
[2022-02-11] MEDS ORDERED: ONDANSETRON INJ 2 MG/ML 2 ML VIAL IV PRN (15:35)
--- NOTE | 2022-02-11 15:37 | Anesthesiology Consultation ---
Date of Service February 11, 2022 Assessment & Plan Chart Review Chart Review: Patient NOT seen in Pre Admission Testing and Acceptable Risk for Labor Epidural last dose heparin last pm. ok for neuraxial Consults Requested none History Height/Weight Height: 5 ft 4 in Weight: 93.894 kg Allergies Allergy/AdvReac Type Severity Reaction Status Date / Time amoxicillin Allergy Rash Verified 02/10/22 15:29 Medications Home Medications Medication Instructions Recorded Confirmed Last Taken prenat.vits,mindy,tmi-gvhm-ndxvr 1 tab PO DAILY 07/09/21 02/11/22 02/10/22 heparin (bovine) 5,000 unit/mL 5,000 unit 02/11/22 02/10/22 19:00 injection solution Active Medications Generic Name Dose Route Start Last Admin Trade Name Freq PRN Reason Stop Dose Admin Lactated Ringer's 1,000 mls @ 125 mls/hr 02/11/22 11:30 02/11/22 15:36 Lr IV 02/13/22 11:29 999 mls/hr .Q8H PRN Administration L&D Protocol Protocol Oxytocin 30 units in 500 mls @ 4 mls/hr 02/11/22 11:34 02/11/22 13:30 Pitocin IV 02/13/22 11:33 0.24 units/hr .Q24H PRN 4 mls/hr Labor Induction/Augmentation Titration Protocol 0.24 UNITS/HR Past Medical History Medical History Breakthrough bleeding on OCPs Encounter for annual routine gynecological examination History of varicella vaccination Post-term , 40-42 weeks of gestation Superficial thrombophlebitis during puerperium, Supervision of normal first in third trimester Exercise / Class Metabolic Activity II 4-5 Yardwork/Stairs/Walk up hill Past Family History Family History Grandfather (Maternal) Colorectal cancer Family/Other Diabetes Hypertension Mother Breast cancer, Onset Age: 45 Past Anesthesia History No Hx of Anesthesia Complications and No Family Hx of Anesthesia Complications Social History Smoking Status: Never smoker Hx Alcohol Use: No Hx Substance Use: No substance use type: does not use Physical Exam Vital Signs Last Vital Signs Temp 36.8 C 02/11/22 14:54 Pulse 86 02/11/22 15:55 Resp 18 02/11/22 15:00 BP 117/76 02/11/22 15:55 Pulse Ox 100 02/11/22 15:55 Testing Laboratory Results 02/11/22 11:39 PT 9.8 Seconds (9.0-12.0) 02/11/22 13:14 INR 0.9 (0.9-1.1) 02/11/22 13:14 APTT 25.1 Seconds (21.0-31.0) 02/11/22 13:14 Blood Type A Positive 02/11/22 11:39 Antibody Screen NEGATIVE 02/11/22 11:39
[2022-02-11] MEDS ORDERED: ERYTHROMYCIN OP OINT 1 GM PKT ONE (19:13)
[2022-02-11] MEDS ORDERED: ACETAMINOPHEN 325 MG TAB PO PRN (19:45)
[2022-02-11] MEDS ORDERED: HYDROCORTISONE ACETATE 25 MG SUPP PR PRN (19:45)
[2022-02-11] MEDS ORDERED: bisacodyL 10 MG SUPP PR PRN (19:45)
[2022-02-11] MEDS ORDERED: oxyCODONE/ACETAMINOPHEN 5mg/325mg TAB PO PRN (19:45)
[2022-02-11] MEDS ORDERED: BENZOCAINE 20% AER SPR 82.5 GM CAN EXT PRN (19:45)
[2022-02-11] MEDS ORDERED: DIPHTHERIA/TETANUS/PERTUSSIS 0.5 ML SYR/VIAL IM ONE (19:45)
--- NOTE | 2022-02-11 20:09 | Anesthesia Procedure Note ---
Date of Service February 11, 2022 Anesthesia Post Epidural Note Vital Signs Vital Signs: Temp Pulse Resp BP Pulse Ox 36.8 C 74 18 121/67 100 02/11/22 19:00 02/11/22 19:55 02/11/22 19:55 02/11/22 19:55 02/11/22 19:30 Notes Mental Status: alert / awake / arousable and participated in evaluation Patient Amnestic to Procedure: No Nausea / Vomiting: adequately controlled Pain: adequately controlled Airway Patency, RR, SpO2: stable & adequate BP & HR: stable & adequate Hydration State: stable & adequate Neuraxial Anesthesia: was administered and sensory block is resolving Anesthetic Complications: no major complications apparent and Pt Satisfied with anesthetic care Epidural: Removed without complications and With tip intact
--- NOTE | 2022-02-11 21:34 | Delivery Summary ---
Vaginal Delivery Summary Date of Service February 11, 2022 Vaginal Delivery Summary and 2nd Degree LAC Patient is a 36-year-old 2 para 1-0-0-1 female who was admitted for induction of labor because of history of DVT and current heparin prophylaxis. Pitocin augmentation was started and membranes were ruptured when she was approximately 4 cm dilated. The fluid was meconium stained. She received effective epidural analgesia and progressed to full dilation. She pushed ef fectively over intact perineum for delivery of a viable female infant. After the head was delivered the rest the infant delivered easily and was placed on mother's abdomen for attention and drying. After 1 minute the cord was clamped and cut. The baby was not vigorous at , and was taken to the baby bed for further stimulation and drying. After cord blood was obtained the placenta was expressed intact with a three-vessel cord. A second-degree perineal laceration was repaired with 3-0 chromic in the usual fashion. Estimated blood loss was 200 cc. [facility] Vaginal Delivery Charge Delivery Type Details: and 2nd Degree LAC
[2022-02-11] MEDS: IBUPROFEN 600 MG TAB PO PRN (21:38)
[2022-02-12] MEDS: IBUPROFEN 600 MG TAB PO PRN ×4 (03:17→18:04)
[2022-02-12] MEDS: DOCUSATE SODIUM 100 MG CAP PO SCH ×3 (07:23→20:22)
[2022-02-12] MEDS: PRENATAL VITAMIN 1 TAB PO SCH (07:38)
--- NOTE | 2022-02-12 07:50 | Obstetrical Progress Note ---
Date of Service February 12, 2022 Assessment & Plan (1) Encounter for care and examination after delivery: Plan satisfactory recovery restart Lovenox 40mg SQ daily today Subjective Ambulation: ambulating normally Voiding: no voiding problems Passing Gas:: Yes Diet Tolerance:: regular diet Lochia:: Small Feeding Type:: breast feeding Review of Systems All systems reviewed & are unremarkable except as noted in HPI & below Physical Exam Constitutional WD/WN, vitals as above Psychiatric A+Ox3, euthymic affect Genitourinary OB Exam Abdomen: + fundal height Fundus: + firm and + relation to umbilicus (@U) no calf tenderness Results & Data ([facility]) Vital Signs (Past 12 Hours) Vital Signs Temp Pulse Pulse Resp BP BP Pulse Ox 02/12/22 03:15 97.9 F 72 16 109/71 99 02/11/22 22:53 98.2 F 84 16 119/73 97 02/11/22 21:38 98.1 F 93 H 18 134/60 02/11/22 21:25 76 112/63 02/11/22 21:10 85 18 102/55 L 02/11/22 20:55 75 116/55 L 02/11/22 20:40 71 112/56 L 02/11/22 20:25 87 18 120/68 02/11/22 20:11 74 18 134/71 02/11/22 19:55 74 18 121/67 O2 Del Method 02/12/22 03:15 Room Air 02/11/22 22:53 Room Air 02/11/22 21:38 02/11/22 21:25 02/11/22 21:10 02/11/22 20:55 02/11/22 20:40 02/11/22 20:25 02/11/22 20:11 02/11/22 19:55
[2022-02-12] MEDS: ENOXAPARIN INJ 40 MG/0.4 ML SYR SQ SCH (09:08)
[2022-02-12 09:51] LABS: Hematocrit (blood only) 37.2 % (34.1-44.9); Hemoglobin 12.4 g/dl (12.0-16.0); Mean Corpuscular Hemoglobin 28.7 pg (25.0-34.0); Mean Corpuscular Hgb Conc 33.3 g/dL (32.0-36.0); Mean Corpuscular Volume 86.1 fL (80.0-100.0); Mean Platelet Volume 11.5 fL (9.4-12.3); Platelet Count 247 K/uL (130-400); RDW Coefficient of Variation 15.4 % (11.5-14.5); RDW Standard Deviation 48.4 fL (36.4-46.3); Red Blood Count 4.32 M/uL (3.93-5.22); White Blood Count 16.61 K/ul (4.8-10.8)
[2022-02-12] MEDS ORDERED: bisacodyL 5 MG TABEC PO SCH (20:00)
--- NOTE | 2022-02-13 04:31 | Obstetrical Progress Note ---
Date of Service February 13, 2022 Assessment & Plan (1) Encounter for care and examination after delivery: Plan - Overall, feeling well and eating well today - feeding going well without concern - Urinating and passing gas appropriately - Ambulating well - Pain controlled w/ Ibuprofen - Hgb 12/4 on 02/12 - Vitals Stable - Routine PP care progressing well - Continue Lovenox 40 SQ daily, patient has supply of medication at home - Anticipate discharge today - Recommending f/u outpatient in 6 weeks Admission and Anticipated Discharge Date Admission Date: February 11, 2022 Supervising Physician Co-Signing Physician Notes Resident Physician Supervision Note: I interviewed and examined the patient. Discussed with Dr. Villeda and agree with findings and plan as documented in the note. Any exceptions or clarifications are listed here: PP2 s/p , doing well. VSS, exam benign and wnl. Stable for d/c home today, has lovenox at home for 6wks pp Documented By: Yue Adair MD Subjective Patient is a 36 y/o female who is PPD #2 following vaginal delivery at 39w4d. She reports feeling well overall this morning and wants to go home. - Ambulation - well throughout room - Voiding/Horta - independent voids, no dysuria or pressure - Gas/Stool - passing gas, no bowel movement - Diet - regular, no nausea or emesis - Lochia - diminishing, light amount - Feeding Type - breast feeding - Pain Level - 3/10, controlled with Ibuprofen Review of Systems - Denies fever, chills, sweats - Denies shortness of breath, difficulty breathing, chest pain, palpitations, chest pressure. - Denies breast pain. - Denies dysuria. - Denies headache or changes in vision. Physical Exam Physical Exam: General: Alert, oriented. No acute distress. Cardiac: RRR, normal S1/S2, no murmurs/rubs/gallops. Respiratory: Non-labored, CTAB, no wheezes/rales/rhonchi. Symmetric chest rise. Abdomen: Soft, nontender, nondistended. Bowel sounds present. Uterus: Uterine fundus firm, palpable 2 cm below umbilicus. Lower Extremities: No lower extremity edema or swelling. No deep calf pain. Dillon's negative bilaterally. Results & Data ([facility]) Vital Signs (Past 12 Hours) Vital Signs Temp Pulse Resp BP Pulse Ox O2 Del Method 02/12/22 23:30 36.7 C 97 H 18 132/72 02/12/22 19:30 37.1 C 76 18 112/74 02/12/22 17:50 36.8 C 79 20 119/75 99 Room Air Resident Activity Tracking Resident Involvement: Resident Care Provided Care Provided: OB Delivery
[2022-02-13] MEDS: PRENATAL VITAMIN 1 TAB PO SCH (08:13)
[2022-02-13] MEDS: IBUPROFEN 600 MG TAB PO PRN (08:13)
[2022-02-13] MEDS: DOCUSATE SODIUM 100 MG CAP PO SCH (08:19)
[2022-02-13 08:33] LABS: Hematocrit (blood only) 37.8 % (34.1-44.9); Hemoglobin 12.5 g/dl (12.0-16.0)
[2022-02-13] MEDS: ENOXAPARIN INJ 40 MG/0.4 ML SYR SQ SCH (09:39)
== END 2022-02-13 12:00 | disposition home or self-care (01) | DRG 807 ==
LOC: 4S1 11:17 → 4E2 21:53
DX: Z20.822 Contact with and (suspected) exposure to COVID-19; O70.1 Second degree perineal laceration during delivery; Z79.01 Long term (current) use of anticoagulants; Z37.0 Single live birth; Z86.718 Personal history of other venous thrombosis and embolism; O77.0 Labor and delivery complicated by meconium in amniotic fluid; Z87.59 Personal history of other complications of pregnancy, childbirth and the puerperium; Z88.0 Allergy status to penicillin; Z3A.39 39 weeks gestation of pregnancy